=== PATIENT | male | born 1955 | race Caucasian/White ===

== ENCOUNTER 2020-04-24 04:07 | Outpatient (CLI) | payer OTHER, SELFPAY ==
--- NOTE | 2020-04-24 09:37 | DI.RAD_ITS ---
EXAM: XR ANKLE RT COMPLETE CLINICAL HISTORY: Right ankle pain for 5 weeks,M25.571. TECHNIQUE: 2D digital imaging was performed. COMPARISON: No exams were available for comparison FINDINGS: BONES: No acute fracture or dislocation. Small enthesophyte at the Achilles insertion site. Small c alcaneal plantar spur. JOINTS: The ankle mortise is normally aligned. SOFT TISSUE: Soft tissue swelling about the ankle. IMPRESSION: Soft tissue swelling about the ankle. DATA REPOSITORY: RADIATION DOSE DELIVERED:
== END 2020-04-24 04:27 ==
PROVIDERS: PCP Nurse Practitioner; Visit Provider Nurse Practitioner
DX: M25.571 Pain in right ankle and joints of right foot (principal); M79.89 Other specified soft tissue disorders
CPT/HCPCS: 73610

== ENCOUNTER → 2020-10-21 10:59 | Outpatient (REF) | payer OTHER, SELFPAY ==
[2020-10-21 14:20] LABS: Anion Gap 10.4 mmol/L (3-11); BUN 19 mg/dL (7-18); CO2 24.6 mmol/L (21.0-32.0); CREATININE 1.13 mg/dL (0.70-1.30); Calcium 8.8 mg/dL (8.5-10.1); Calculated LDL 117 mg/dL (<100); Chloride 108 mmol/L (98-107); Cholesterol 180 mg/dL (<200); Glucose 140 mg/dL (74-106); HDL Cholesterol 47 mg/dL (40-60); Potassium 4.1 mmol/L (3.5-5.1); Sodium 143 mmol/L (136-145); Triglyceride 84 mg/dL (<150)
[2020-10-21 22:28] LABS: PSA, Screening 0.5 ng/mL (0.0-4.5)
== END ==
LOC: NCHCN 10:59
PROVIDERS: PCP Nurse Practitioner; Visit Provider Physician Assistant
DX: Z00.00 Encounter for general adult medical examination without abnormal findings (principal)
CPT/HCPCS: 80048; 80061; 84153

== ENCOUNTER 2021-01-21 08:11 | Outpatient (REF) | payer OTHER, SELFPAY | END 2021-01-21 08:12 | disposition home or self-care (01) | LOC: NCHCN 08:11 | PROVIDERS: Visit Provider Physician Assistant | DX: R73.09 Other abnormal glucose (principal) | CPT/HCPCS: 83036 ==

== ENCOUNTER 2023-07-17 20:23 | Outpatient (REF) | payer OTHER, SELFPAY ==
[2023-07-17 16:49] LABS: ALT 29 U/L (16-63); AST 20 U/L (15-37); Albumin 3.8 g/dL (3.4-5.0); Alkaline Phosphatase 83 U/L (46-116); Anion Gap 11.6 mmol/L (3-11); BUN 23 mg/dL (7-18); Bilirubin, Total 0.4 mg/dL (0.2-1.0); CO2 24.4 mmol/L (21.0-32.0); CREATININE 1.2 mg/dL (0.70-1.30); Calcium 9.4 mg/dL (8.5-10.1); Calculated LDL 139 mg/dL (<100); Chloride 106 mmol/L (98-107); Cholesterol 208 mg/dL (<200); Estimated GFR 65.46 (mL/min/1.73m2); Glucose 139 mg/dL (74-106); HDL Cholesterol 48 mg/dL (40-60); Sodium 142 mmol/L (136-145); Total Protein 7.3 g/dL (6.4-8.2); Triglyceride 109 mg/dL (<150)
[2023-07-17 17:03] LABS: Hemoglobin A1C 7.2 % (<5.7)
[2023-07-17 23:32] LABS: PSA, Screening 0.8 ng/mL (<=4.5)
== END 2023-07-17 20:24 | disposition home or self-care (01) ==
LOC: NCHCN 20:23
PROVIDERS: Visit Provider Physician Assistant
DX: E11.9 Type 2 diabetes mellitus without complications (principal); Z12.5 Encounter for screening for malignant neoplasm of prostate
CPT/HCPCS: 80053; 80061; 84153; 83036